=== PATIENT | male | born 1960 | race Caucasian/White ===

== ENCOUNTER 2017-12-19 02:49 | Inpatient (IN) ==
[2017-12-19] MEDS ORDERED: NITROGLYCERIN 2% OINT 1 INCH/GM PACK TOP STA (02:53)
[2017-12-19] MEDS ORDERED: PANTOPRAZOLE 40 MG VIAL IV STA (02:54)
[2017-12-19] MEDS ORDERED: PANTOPRAZOLE 40 MG VIAL IV ONE (03:03)
[2017-12-19] MEDS ORDERED: NITROGLYCERIN 2% OINT 1 INCH/GM PACK TOP ONE (03:03)
[2017-12-19 03:19] LABS: Basophils # 0.1 10*3/uL (0.0-0.2); Basophils % 0.7 % (0.0-0.8); Eosinophils # 0.2 10*3/uL (0.0-0.87); Eosinophils % 1.6 % (0.00-10.9); Hematocrit 53.9 VOL% (42.0-52.0); Hemoglobin 17.8 GM/DL (14.0-18.0); Immature Granulocytes % 0.4 %; Immature Granulocytes Absolute 0.06 #; Lymphocytes # 1.7 10*3/uL (1.4-4.0); Lymphocytes % 12.4 % (21.2-54.2); Mean Corpuscular Hemoglobin 30 PG (27-34); Mean Corpuscular Volume 91.5 FL (87-102); Mean Platelet Volume 10.5 FL (9.6-12.0); Monocytes # 0.7 10*3/uL (0.11-0.8); Monocytes % 5.2 % (1.7-12.7); Neutrophils # 10.8 10*3/uL (1.4-7.4); Neutrophils % 79.7 % (38.7-73.9); Platelet Count 246 T/CUMM (130-400); Red Blood Count 5.89 MC/CUMM (3.8-5.5); Red Cell Distribution Width 12.8 % (9.3-17.3); White Blood Count 13.5 T/CUMM (4-12)
[2017-12-19 03:42] LABS: Alanine Aminotransferase 38 U/L (16-61); Albumin 3.2 G/DL (3.4-5.0); Alkaline Phosphatase 69 U/L (45-117); Aspartate Amino Transferase 26 U/L (0-37); Bilirubin,Total < 0.39 MG/DL (0.2-1.0); Blood Urea Nitrogen 19 MG/DL (7-18); Calcium 8.3 MG/DL (8.5-10.1); Glucose 124 MG/DL (74-106); Osmolality,Calculated 277.7 MOS/KG (273-304); Potassium 3.4 MMOL/L (3.5-5.1); Sodium 138 MMOL/L (136-145); Total Protein 6.6 G/DL (6.4-8.3)
[2017-12-19] MEDS ORDERED: MORPHINE 4 MG/1 ML VIAL IV STA (04:21)
[2017-12-19] MEDS ORDERED: MORPHINE 4 MG/1 ML VIAL ONE (04:47)
[2017-12-19] MEDS ORDERED: ACETAMINOPHEN 325 MG TABLET PO PRN (05:14)
[2017-12-19] MEDS ORDERED: ONDANSETRON 4 MG/2 ML VIAL IV PRN ×2 (05:14→17:03)
[2017-12-19] MEDS ORDERED: DOCUSATE SODIUM 100 MG CAPSULE PO PRN (05:14)
[2017-12-19] MEDS ORDERED: ZALEPLON 5 MG CAPSULE PO PRN (05:19)
[2017-12-19] MEDS ORDERED: ALUM/MAG/SIMETH/LIDO VISC 1:1 30 ML BOTTLE PO PRN (05:19)
[2017-12-19] MEDS ORDERED: POTASSIUM CHLORIDE 20 MEQ TABLET PO PRN ×2 (05:19)
[2017-12-19] MEDS ORDERED: MAGNESIUM SULF RIDER 2 GM in PREMIX 1 EACH IV PRN (05:19)
[2017-12-19] MEDS ORDERED: MAGNESIUM SULF RIDER 4 GM in PREMIX 1 EACH IV PRN (05:19)
[2017-12-19] MEDS ORDERED: chlordiazePOXIDE 10 MG CAPSULE PO PRN (05:44)
[2017-12-19] MEDS ORDERED: traMADol 50 MG TABLET PO PRN (05:48)
[2017-12-19] MEDS ORDERED: ALBUTEROL 2.5 MG/3 ML NEB RESP TX PRN (05:48)
[2017-12-19] MEDS ORDERED: NITROGLYCERIN 2% OINT 1 INCH/GM PACK TOP SCH (06:00)
[2017-12-19] MEDS ORDERED: SODIUM CHLORIDE 0.9% 1,000 ML IV SCH (06:00)
[2017-12-19] MEDS ORDERED: THIAMINE INJ 100 MG, FOLIC ACID INJ 1 MG, MULTIVITAMIN INJ 10 ML in SODIUM CHLORIDE 0.4... IV SCH (06:30)
[2017-12-19] MEDS ORDERED: PIPERACILLIN/TAZOBACTAM 3,375 MG VIAL IV ONE (06:33)
[2017-12-19 06:34] LABS: Risk Ratio 2.52; VLDL CHOLESTEROL 15.6 MG/DL
[2017-12-19] MEDS ORDERED: SODIUM CHLORIDE 0.9% 100 ML IV ONE (06:34)
[2017-12-19] MEDS: PIPERACILLIN/TAZOBACTAM 3,375 MG in SODIUM CHLORIDE 0.9% 100 ML IV SCH ×2 (06:44→18:33)
[2017-12-19] MEDS: IPRATROPIUM 500 MCG/2.5 ML NEB RESP TX SCH ×4 (07:15→19:01)
[2017-12-19] MEDS: LEVOTHYROXINE 50 MCG TABLET PO SCH (08:19)
[2017-12-19] MEDS ORDERED: LISINOPRIL 2.5 MG TABLET PO SCH (09:00)
[2017-12-19] MEDS ORDERED: PANTOPRAZOLE 40 MG TABLET PO ONE (10:16)
[2017-12-19] MEDS ORDERED: ASPIRIN EC 325 MG TABLET PO ONE (10:16)
[2017-12-19] MEDS: PANTOPRAZOLE 40 MG TABLET PO SCH (10:20)
[2017-12-19] MEDS: ASPIRIN EC 81 MG TABLET PO SCH (10:20)
[2017-12-19] MEDS: hydroCHLOROthiazide 25 MG TABLET PO SCH ×2 (10:21→21:21)
[2017-12-19] MEDS ORDERED: TISSUE ADHESIVE 1 EACH APPLICATOR TOP ONE (15:18)
[2017-12-19] MEDS ORDERED: BUPIVACAINE 0.25% 50 ML VIAL ONE (15:18)
[2017-12-19] MEDS ORDERED: LIDOCAINE 1%/EPI INJ 20 ML VIAL ONE (15:18)
[2017-12-19] MEDS ORDERED: cefOXitin 2,000 MG in SYRINGE 1 EACH IV ONE (15:30)
[2017-12-19] MEDS ORDERED: MEPERIDINE 25 MG/1 ML VIAL ONE (17:02)
[2017-12-19] MEDS ORDERED: MEPERIDINE 25 MG/1 ML VIAL IV PRN (17:03)
[2017-12-19] MEDS ORDERED: ONDANSETRON 4 MG/2 ML VIAL ONE ×2 (17:03→17:42)
[2017-12-19] MEDS ORDERED: HYDROmorphone 2 MG/1 ML VIAL IV PRN (17:03)
[2017-12-19] MEDS ORDERED: diphenhydrAMINE 50 MG/1 ML VIAL IV PRN (17:03)
[2017-12-19] MEDS ORDERED: MIDAZOLAM 2 MG/2 ML VIAL ONE (17:41)
[2017-12-19] MEDS ORDERED: fentaNYL 100 MCG/2 ML VIAL ONE (17:41)
[2017-12-19] MEDS ORDERED: DEXAMETHASONE 10 MG/1 ML VIAL ONE (17:41)
[2017-12-19] MEDS ORDERED: PROPOFOL 200 MG/20 ML VIAL IV ONE (17:41)
[2017-12-19] MEDS ORDERED: SEVOFLURANE 1 UNIT/15 MINUTE INH ONE (17:41)
[2017-12-19] MEDS ORDERED: ROCURONIUM 100 MG/10 ML VIAL IV ONE (17:42)
[2017-12-19] MEDS ORDERED: NEOSTIGMINE 10 MG/10 ML VIAL ONE (17:42)
[2017-12-19] MEDS ORDERED: GLYCOPYRROLATE 0.4 MG/2 ML VIAL ONE (17:42)
[2017-12-19] MEDS ORDERED: ACETAMINOPHEN 1,000 MG/100 ML VIAL IV ONE (17:42)
[2017-12-19] MEDS ORDERED: KETOROLAC 30 MG/1 ML VIAL ONE (17:42)
[2017-12-19] MEDS ORDERED: ATORVASTATIN 10 MG TABLET PO SCH (21:00)
[2017-12-19] MEDS: 1: SODIUM CHLORIDE 0.9% 1,000 ML 2: THIAMINE INJ 100 MG, FOLIC ACID INJ 1 MG, MULTIVITA IV SCH (22:45)
[2017-12-20 04:25] LABS: Basophils % 0.3 % (0.0-0.8); Eosinophils % 0.1 % (0.00-10.9); Hemoglobin 16.6 GM/DL (14.0-18.0); Immature Granulocytes % 0.5 %; Immature Granulocytes Absolute 0.08 #; Lymphocytes # 0.9 10*3/uL (1.4-4.0); Lymphocytes % 6.1 % (21.2-54.2); Mean Corpuscular HGB Conc 33.2 GM/DL (32-36); Mean Corpuscular Hemoglobin 31 PG (27-34); Mean Corpuscular Volume 92.4 FL (87-102); Mean Platelet Volume 11.1 FL (9.6-12.0); Monocytes # 0.7 10*3/uL (0.11-0.8); Monocytes % 4.3 % (1.7-12.7); Neutrophils # 13.7 10*3/uL (1.4-7.4); Neutrophils % 88.7 % (38.7-73.9); Platelet Count 226 T/CUMM (130-400); Red Blood Count 5.41 MC/CUMM (3.8-5.5); White Blood Count 15.5 T/CUMM (4-12)
[2017-12-20 04:56] LABS: Calcium 7.8 MG/DL (8.5-10.1); Osmolality,Calculated 273.7 MOS/KG (273-304); Potassium 4.1 MMOL/L (3.5-5.1)
[2017-12-20] MEDS: LEVOTHYROXINE 50 MCG TABLET PO SCH (06:23)
[2017-12-20] MEDS: IPRATROPIUM 500 MCG/2.5 ML NEB RESP TX SCH ×2 (06:56→10:52)
[2017-12-20] MEDS: 1: SODIUM CHLORIDE 0.9% 1,000 ML 2: THIAMINE INJ 100 MG, FOLIC ACID INJ 1 MG, MULTIVITA IV SCH (09:13)
[2017-12-20] MEDS: hydroCHLOROthiazide 25 MG TABLET PO SCH (09:14)
[2017-12-20] MEDS: ASPIRIN EC 81 MG TABLET PO SCH (09:14)
[2017-12-20] MEDS: PANTOPRAZOLE 40 MG TABLET PO SCH (09:16)
[2017-12-20 11:29] VITALS: BP 125/66
== END 2017-12-20 13:45 | disposition home or self-care (01) | DRG 419 ==
LOC: EDBD → EDUNIT# → N.ED 02:49 → N.EDINP 05:14 → N.2E 11:39
PROVIDERS: ADMIT Internal Medicine; ATTEND Internal Medicine
PROC: LAPCHOL (2017-12-19 15:35)

== ENCOUNTER 2019-12-20 09:59 | Observation (INO) ==
[2019-12-20] MEDS ORDERED: METOPROLOL TARTRATE 5 MG/5 ML VIAL IV STA (10:43)
[2019-12-20] MEDS ORDERED: ENOXAPARIN 100 MG/ML SYRINGE SUBCUT STA (10:43)
[2019-12-20] MEDS ORDERED: NITROGLYCERIN 2% OINT 1 INCH/GM PACK TOP STA (10:43)
[2019-12-20] MEDS ORDERED: ONDANSETRON 4 MG/2 ML VIAL IV STA (10:43)
[2019-12-20] MEDS ORDERED: MORPHINE 4 MG/1 ML VIAL IV STA ×2 (10:43→12:09)
[2019-12-20] MEDS ORDERED: ASPIRIN 325 MG TABLET PO STA (10:43)
[2019-12-20] MEDS ORDERED: ENOXAPARIN 80 MG/0.8 ML SYRINGE SUBCUT ONE (10:52)
[2019-12-20 11:00] LABS: Basophils # 0.1 10*3/uL (0.0-0.2); Basophils % 1.2 % (0.0-0.8); Eosinophils # 0.2 10*3/uL (0.0-0.87); Eosinophils % 3.2 % (0.00-10.9); Hematocrit 50.4 VOL% (42.0-52.0); Hemoglobin 16.4 GM/DL (14.0-18.0); Immature Granulocytes % 0.4 %; Immature Granulocytes Absolute 0.02 #; Lymphocytes # 1.7 10*3/uL (1.4-4.0); Lymphocytes % 30.1 % (21.2-54.2); Mean Corpuscular HGB Conc 32.5 GM/DL (32-36); Mean Corpuscular Volume 93.7 FL (87-102); Mean Platelet Volume 10.4 FL (9.6-12.0); Monocytes % 7.6 % (1.7-12.7); Neutrophils % 57.5 % (38.7-73.9); Platelet Count 251 T/CUMM (130-400); Red Blood Count 5.38 MC/CUMM (3.8-5.5); Red Cell Distribution Width 13.2 % (9.3-17.3); White Blood Count 5.7 T/CUMM (4-12)
[2019-12-20 11:07] LABS: Albumin 3.3 G/DL (3.4-5.0); Bilirubin,Total 0.4 MG/DL (0.2-1.0); Calcium 8.7 MG/DL (8.5-10.1); Osmolality,Calculated 278.4 MOS/KG (273-304); PT Patient Result 10.3 SECS (9.8-11.9); Partial Thromboplastin Time 30.5 SECS (23.9-33.8)
[2019-12-20] MEDS ORDERED: SIMETHICONE CHEW 125 MG TABLET PO PRN (11:45)
[2019-12-20] MEDS ORDERED: MAGNESIUM SULF RIDER 4 GM in PREMIX 1 EACH IV PRN (11:45)
[2019-12-20] MEDS ORDERED: ZALEPLON 5 MG CAPSULE PO PRN (11:45)
[2019-12-20] MEDS ORDERED: hydrALAZINE 20 MG/1 ML VIAL IV PRN (11:45)
[2019-12-20] MEDS ORDERED: diphenhydrAMINE CAP 25 MG CAPSULE PO PRN (11:45)
[2019-12-20] MEDS ORDERED: ACETAMINOPHEN 325 MG TABLET PO PRN (11:45)
[2019-12-20] MEDS ORDERED: POTASSIUM CHLORIDE 20 MEQ TABLET PO PRN (11:45)
[2019-12-20] MEDS ORDERED: BISACODYL 5 MG TABLET PO PRN (11:45)
[2019-12-20] MEDS ORDERED: guaiFENesin/DM ER 600-30 MG TABLET PO PRN (11:45)
[2019-12-20] MEDS ORDERED: ALUMINUM/MAGNES/SIMETH MAX STR 30 ML UDCUP PO PRN (11:45)
[2019-12-20] MEDS ORDERED: MAGNESIUM SULF RIDER 2 GM in PREMIX 1 EACH IV PRN (11:45)
[2019-12-20] MEDS ORDERED: LACTULOSE 20 GM/30 ML UDCUP PO PRN (11:45)
[2019-12-20] MEDS ORDERED: CALCIUM CARBONATE CHEW 500 MG TABLET PO PRN (11:45)
[2019-12-20] MEDS ORDERED: MORPHINE 4 MG/1 ML VIAL IV PRN (11:45)
[2019-12-20] MEDS ORDERED: SODIUM CHLORIDE 0.45% 1,000 ML IV SCH (12:00)
[2019-12-20] MEDS ORDERED: ALBUTEROL 2.5 MG/3 ML NEB RESP TX PRN (12:04)
[2019-12-20] MEDS ORDERED: carisoprodoL 350 MG TABLET PO PRN (12:04)
[2019-12-20] MEDS ORDERED: LORazepam 1 MG TABLET PO PRN (12:17)
[2019-12-20] MEDS ORDERED: PNEUMOCOCCAL VACCINE (23 VALENT) 0.5 ML VIAL IM ONE (13:21)
[2019-12-20] MEDS: ONDANSETRON 4 MG/2 ML VIAL IV PRN ×2 (14:24→18:01)
[2019-12-20] MEDS ORDERED: ALUM/MAG/SIMETH/LIDO VISC 1:1 30 ML BOTTLE PO ONE (15:39)
[2019-12-20] MEDS: NITROGLYCERIN 2% OINT 1 INCH/GM PACK TOP SCH ×3 (15:53→23:38)
[2019-12-20] MEDS ORDERED: TICAGRELOR 90 MG TABLET PO ONE (19:32)
[2019-12-20] MEDS: METOPROLOL TARTRATE 25 MG TABLET PO SCH (20:28)
[2019-12-20] MEDS: THIAMINE 100 MG TABLET PO SCH (20:28)
[2019-12-20] MEDS: hydroCHLOROthiazide 25 MG TABLET PO SCH (20:29)
[2019-12-20] MEDS: ENOXAPARIN 80 MG/0.8 ML SYRINGE SUBCUT SCH (20:29)
[2019-12-20] MEDS: CYANOCOBALAMIN 100 MCG TABLET PO SCH (20:29)
[2019-12-20] MEDS: MULTIVITAMIN (CENTRUM) TABLET PO SCH (20:29)
[2019-12-21] MEDS: NITROGLYCERIN 2% OINT 1 INCH/GM PACK TOP SCH ×2 (05:50→14:14)
[2019-12-21] MEDS ORDERED: diphenhydrAMINE CAP 25 MG CAPSULE PO ONE (06:00)
[2019-12-21] MEDS ORDERED: DIAZEPAM 5 MG TABLET PO ONE (06:00)
[2019-12-21 06:17] LABS: Basophils # 0.1 10*3/uL (0.0-0.2); Basophils % 0.8 % (0.0-0.8); Eosinophils # 0.1 10*3/uL (0.0-0.87); Eosinophils % 1.1 % (0.00-10.9); Hematocrit 44.2 VOL% (42.0-52.0); Hemoglobin 14.2 GM/DL (14.0-18.0); Immature Granulocytes % 0.2 %; Immature Granulocytes Absolute 0.02 #; Lymphocytes # 1.9 10*3/uL (1.4-4.0); Lymphocytes % 22.1 % (21.2-54.2); Mean Corpuscular HGB Conc 32.1 GM/DL (32-36); Mean Corpuscular Volume 95.3 FL (87-102); Mean Platelet Volume 10.3 FL (9.6-12.0); Monocytes % 8.1 % (1.7-12.7); Neutrophils % 67.7 % (38.7-73.9); Platelet Count 225 T/CUMM (130-400); Red Blood Count 4.64 MC/CUMM (3.8-5.5); Red Cell Distribution Width 13.2 % (9.3-17.3); White Blood Count 8.7 T/CUMM (4-12)
[2019-12-21] MEDS ORDERED: LEVOTHYROXINE 50 MCG TABLET PO SCH (06:30)
[2019-12-21 06:46] LABS: Calcium 8.9 MG/DL (8.5-10.1); Osmolality,Calculated 273.7 MOS/KG (273-304); Risk Ratio 2.18; Thyroid Stimulating Hormone 6.43 uIU/ml (0.358-3.74); VLDL CHOLESTEROL 36.4 MG/DL
[2019-12-21] MEDS ORDERED: SODIUM CHLORIDE 0.45% 1,000 ML IV SCH (07:00)
[2019-12-21] MEDS ORDERED: IPRATROPIUM 500 MCG/2.5 ML NEB RESP TX SCH ×2 (07:00→19:00)
[2019-12-21] MEDS ORDERED: ASPIRIN EC 81 MG TABLET PO SCH (09:00)
[2019-12-21] MEDS ORDERED: lisinopriL 10 MG TABLET PO SCH (09:00)
[2019-12-21] MEDS ORDERED: PANTOPRAZOLE 40 MG TABLET PO SCH (09:00)
[2019-12-21] MEDS ORDERED: lisinopriL 20 MG TABLET PO SCH (09:00)
[2019-12-21] MEDS ORDERED: TICAGRELOR 90 MG TABLET PO SCH (09:00)
[2019-12-21] MEDS: METOPROLOL TARTRATE 25 MG TABLET PO SCH (09:49)
[2019-12-21] MEDS: ENOXAPARIN 80 MG/0.8 ML SYRINGE SUBCUT SCH (09:50)
[2019-12-21] MEDS: hydroCHLOROthiazide 25 MG TABLET PO SCH (09:50)
[2019-12-21] MEDS ORDERED: LIDOCAINE 1% 20 ML VIAL ONE (11:33)
[2019-12-21] MEDS ORDERED: HEPARIN/NACL 0.9% 2 UNITS/ML 1,000 ML IV ONE (11:33)
[2019-12-21] MEDS ORDERED: MIDAZOLAM 2 MG/2 ML VIAL ONE (11:51)
[2019-12-21] MEDS ORDERED: VERAPAMIL 5 MG/2 ML VIAL ONE (11:53)
[2019-12-21] MEDS ORDERED: NITROGLYCERIN DRIP 50 MG/250 ML BOTTLE IV ONE (11:53)
[2019-12-21] MEDS ORDERED: fentaNYL 100 MCG/2 ML VIAL ONE (11:53)
[2019-12-21] MEDS ORDERED: ENOXAPARIN 60 MG/0.6 ML SYRINGE ONE (12:03)
[2019-12-21] MEDS: CYANOCOBALAMIN 100 MCG TABLET PO SCH (13:26)
[2019-12-21] MEDS: MULTIVITAMIN (CENTRUM) TABLET PO SCH (13:26)
[2019-12-21] MEDS: THIAMINE 100 MG TABLET PO SCH (13:26)
[2019-12-21] MEDS ORDERED: ROSUVASTATIN 20 MG TABLET PO SCH (14:00)
[2019-12-21 16:38] VITALS: BP 107/64
[2019-12-22] MEDS ORDERED: ISOSORBIDE MONONITRATE 30 MG TABLET PO SCH (09:00)
== END 2019-12-21 17:31 | disposition home or self-care (01) ==
LOC: N.ED 09:59 → INTOOBSV 11:04 → N.EDINP 11:04 → N.TELES 12:26
PROVIDERS: ADMIT Internal Medicine Cardiovascular Disease; ATTEND Internal Medicine Cardiovascular Disease
PROC: CLCCHCL (ICD-10-PCS; 2019-12-21 12:15)